=== PATIENT | female | born 2000 | race American Indian/Alaskan Native ===

== ENCOUNTER 2021-07-02 00:26 | Emergency (ER) | payer BC ==
[2021-07-02 04:33] LABS: HCG Qualitative,Urine Negative (Negative)
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
[2021-07-02 06:26] VITALS: BP 132/87
== END 2021-07-02 06:26 | disposition home or self-care (01) ==
LOC: ED 00:26
DX: S39.012A Strain of muscle, fascia and tendon of lower back, initial encounter (principal); Z98.890 Other specified postprocedural states; V87.7XXA Person injured in collision between other specified motor vehicles (traffic), initial encounter; Y93.89 Activity, other specified; Y92.488 Other paved roadways as the place of occurrence of the external cause; Y99.8 Other external cause status
CPT/HCPCS: 72131; 81025; 99284